=== PATIENT | male | born 1950 | race Caucasian/White ===

== ENCOUNTER 2022-10-03 10:59 | Emergency (ER) | payer OTHER ==
[~2022-10-03] VITALS: Ht 180.3 cm; Wt 102.5 kg
[2022-10-03 12:27] LABS: CREATININE 1.3 mg/dL (0.5-1.5); POTASSIUM 3.1 mmol/L (3.5-5.1)
[2022-10-03 12:28] LABS: INR 1.05 (0.85-1.15); PROTHROMBIN TIME 11.4 SEC (9.6-11.6)
[2022-10-03 12:29] LABS: PARTIAL THROMBOPLASTIN TIME 29.3 SEC (26.3-35.5)
[2022-10-03 12:32] LABS: ALBUMIN 2.8 g/dL (3.5-5.0); TOTAL PROTEIN, SERUM 6.1 g/dL (6.0-8.3)
[2022-10-03 12:43] LABS: BASOPHILS % (AUTO) 0.7 % (0.0-5.0); EOSINOPHILS % (AUTO) 0.7 % (0.0-8.0); HEMATOCRIT 42.6 % (42-54); LYMPHOCYTES % (AUTO) 17.9 % (21.0-51.0); MEAN CORPUSCULAR HEMOGLOBIN 34.3 pg (27.0-33.0); MEAN CORPUSCULAR HGB CONC 34.7 g/dL (32.0-36.0); MEAN CORPUSCULAR VOLUME 98.6 fL (79-99); MONOCYTES % (AUTO) 19.3 % (3.0-13.0); NEUTROPHILS % (AUTO) 60.7 % (40.0-77.0); PLATELET COUNT (AUTO) 114 K/uL (130-400); RED BLOOD CELL COUNT(AUTO) 4.32 MIL/uL (4.50-6.20); RED CELL DISTRIBUTION WIDTH 13.5 % (11.0-15.5); WHITE BLOOD COUNT (AUTO) 5.5 K/uL (4.8-10.8)
[2022-10-03] MEDS ORDERED: POTASSIUM BICARB/CIT AC 25 MEQ TABLET.EFF PO ONE (14:30)
[2022-10-03 15:15] LABS: APPEARANCE,URINE CLOUDY (CLEAR); BILIRUBIN,URINE NEGATIVE (NEGATIVE); COLOR,URINE YELLOW (YELLOW); GLUCOSE, URINE (UA) NEGATIVE (NEGATIVE); KETONES,URINE 5 mg/dL (NEGATIVE); LEUKOCYTE ESTERASE ,URINE NEGATIVE Leu/uL (NEGATIVE); NITRATE,URINE NEGATIVE (NEGATIVE); OCCULT BLOOD,URINE LARGE (NEGATIVE); PROTEIN,URINE 100 mg/dL (NEGATIVE); UROBILINOGEN,URINE 0.2 mg/dL (0.2-1.0)
[2022-10-03 15:28] LABS: BACTERIA,URINE RARE /HPF (None Seen); MUCUS,URINE RARE LPF (None Seen); SQUAMOUS EPITHELIAL CELL,UR RARE /HPF (0-2); TRANSITIONAL EPI CELLS,URINE RARE /HPF (None Seen)
[2022-10-03 15:51] LABS: INR 1.06 (0.85-1.15); PROTHROMBIN TIME 11.5 SEC (9.6-11.6)
[2022-10-03 15:52] LABS: PARTIAL THROMBOPLASTIN TIME 29.3 SEC (26.3-35.5)
[2022-10-03 17:02] VITALS: BP 107/54
[2022-10-08] MEDS ORDERED: [UNRECOGNIZED DRUG - OTHER] PO (10:13)
[2022-10-08] MEDS ORDERED: [UNRECOGNIZED DRUG - OTHER] PO (10:13)
[2022-10-08] MEDS ORDERED: FLUT15.845 NS (10:13)
[2022-10-08] MEDS ORDERED: APIX5TAB PO (10:13)
[2022-10-08] MEDS ORDERED: MOME13HF3 IH (10:13)
[2022-10-08] MEDS ORDERED: DEXT1DRO8 OP (10:13)
[2022-10-08] MEDS ORDERED: LISI10TA24 PO (10:13)
[2022-10-08] MEDS ORDERED: TIOT4MIS2 IH (10:13)
[2022-10-08] MEDS ORDERED: FINA5TAB41 PO (10:13)
== END 2022-10-03 17:06 | disposition home or self-care (01) ==
LOC: EDH 10:59
DX: S50.11XA Contusion of right forearm, initial encounter (principal); R74.8 Abnormal levels of other serum enzymes; E87.6 Hypokalemia; R16.0 Hepatomegaly, not elsewhere classified; N30.00 Acute cystitis without hematuria; E78.00 Pure hypercholesterolemia, unspecified; I10 Essential (primary) hypertension; J44.9 Chronic obstructive pulmonary disease, unspecified; W19.XXXA Unspecified fall, initial encounter; Y93.89 Activity, other specified; Y92.89 Other specified places as the place of occurrence of the external cause; Y99.8 Other external cause status
CPT/HCPCS: 36415; 70450; 72125; 72190; 73030; 73552; 73562; 74176; 76705; 80053; 81001; 83605; 84484; 85025; 85610; 85730; 87088; 93005